=== PATIENT | female | born 1995 | race Caucasian/White ===

== ENCOUNTER 2022-12-21 11:07 | Inpatient (IN) ==
--- NOTE | 2022-12-21 11:26 | History & Physical Report ---
Date of Service December 21, 2022 Assessment & Plan (1) Rubella non-immune status, antepartum: (2) Supervision of normal first : Plan Will admit patient for further evaluation and management. ROM confirmed in office: Nitrazine (+) and ferning Patient comfortable. VSS. Pit as needed Epidural prn Patient in agreement. History of Present Illness Chief Complaint: LABOR CHECK Primary Care Provider: Tresa Zheng MD Farzana is a 27 y/o female currently at [facility]UP 40 2/7 WGA with an KATELYN 12/19/22 as determined by Ultrasound who is here for labor check. At around 1:30am, she woke up to go to the bathroom, and at this time noticed mucus vaginal secretion that she believes was her mucus plug. Since then, she was experiencing regular contractions every 10 minutes. At around 8:30am, she had watery discharge, and since then her contractions have increased in frequency to every 5 minutes. She was seen in the OB office today, where they examined her and they found pooling of fluid in the vaginal canal which was Nitrazine positive and had positive ferning, therefore confirming ROM. She was then told to go to L&D for further management. (+) movement (+) contractions (+) fluid loss (-) bloody show External FHT and external uterine monitors used * Category 1 tracing * Moderate FHT variability. Had regular appointments since her 1st trimester. OB Labs: Blood Type O Positive 05/27/22 Antibody Screen NEGATIVE 05/27/22 Hemoglobin 11.8 g/dl (12.0-16.0) L 09/29/22 Hematocrit 34.8 % (37.0-47.0) L 09/29/22 Mean Corpuscular Volume 91.2 fL (80.0-100.0) 05/27/22 Platelet Count 304 K/uL (130-400) 05/27/22 Rubella IgG Antibody Equivocal (Immune) L 05/27/22 Rapid Plasma Reagin Nonreactive (Nonreactive) 05/27/22 Hepatitis B Surface Antigen. NON-REACTIVE (NON-REACTIVE) 05/27/22 Hepatitis C Antibody (EIA) NON-REACTIVE (NON-REACTIVE) 05/27/22 HIV (1&2) Ag and Ab Confirmation NON-REACTIVE (NON-REACTIVE) 05/27/22 Glucose 1 Hour 50 gm Load 189 mg/dl (70-130) H 09/29/22 OB Optional Labs: Chlamydia trachomatis RNA Not Detected (NotDetected) 05/27/22 Neisseria gonorrhoeae RNA Not Detected (NotDetected) 05/27/22 Labs Reviewed: Declines carrier screen cfdna-low risk normal 2hr gtt Allergies Allergy/AdvReac Type Severity Reaction Status Date / Time nickel Allergy Intermediate contact Verified 12/21/22 11:44 dermatitis Home Medications Medication Instructions Recorded Confirmed Type prenat.vits,ezequiel,lap-wlxt-quwbw 1 tab PO DAILY 05/24/22 12/21/22 History Patient History Medical History Chicken pox Blood in stool Surgical History History of strabismus surgery History of wisdom tooth extraction S/P colonoscopy Family History Grandmother (Paternal) Family history of reaction to anesthesia difficulty waking Father Family hx colonic polyps Coronary heart disease Grandfather (Paternal) Coronary heart disease Uncle Coronary heart disease Denies family history of Ovarian cancer Breast cancer Colorectal cancer Social History (Updated 05/24/22 @ 13:27 by Joann Magana, YOUSIF) Smoking Status: Never smoker Second Hand Exposure: No; Do You Dip or Chew Tobacco: No; Hx Alcohol Use: Yes Alcohol type: wine and hard liquor Hx Substance Use: No Preferred Language: Hebrew Communication Ability: Effective Rn New Graduate Required: No Beliefs That Will Affect Care: None marital status: Single marital status details: Lilia Wilburn mother [phone] Current Living Situation: Alone Current Living Situation Comment: lives boyfriend, 2 cats. Boyfriend occasionally changes litter. current occupational status: employed current occupation: [employer] Feels Safe at Home: Yes Safety Concerns: Feels Safe At This Time Assistive Devices: Contacts and Glasses [employer] History Menstrual history * Regular * Flow: Normal Contraception use: No History of STDs: N Last Pap Smear: 1-2 years ago in [facility] and was negative, as per patient Review of Systems no fever, no chills and no sweats Denies changes in vision. Denies shortness of breath or respiratory difficulty. no chest pain and no palpitations no dysuria no headache(s) Physical Exam Physical Exam: General: Alert, oriented x3. Afebrile. No acute distress. Eyes: Pupils equal and reactive to light bilaterally. Extraocular movement intact bilaterally. Cardiac: Regular rate and rhythm, no murmurs/rubs/gallops. Respiratory: Clear to auscultation bilaterally a/p, no wheezes/rales/rhonchi. No increased work of breathing. Symmetrical chest rise. No respiratory distress. Abdomen: Gravid; FHR baseline 130-135 bpm; Position: Cephalic Pelvic: 2 90 / [address] Brown Lower Extremities: No lower extremity edema or swelling. No deep calf pain. Hoang's negative bilaterally Genitourinary: OB Exam Abdomen: + vertex, + estimated weight (8-9 pounds) and + regular contractions (Q5 minutes mild-moderate) OB Exam Monitor Tracing: + external FHT monitor used, + external uterine monitor used, + category I and + normal FHT variability Results & Data Vital Signs (Past 12 Hours) Vital Signs Pulse BP 12/21/22 11:17 105 H 139/93 Supervising Physician Co-Signing Physician Notes Resident Physician Supervision Note: I interviewed and examined the patient. Discussed with Dr. Sotomayor and agree with findings and plan as documented in the note. Any exceptions or clarifications are listed here: [None] Documented By: Chana Herzog MD, FACOG Resident Activity Tracking Resident Involvement: Resident Care Provided Care Provided: OB Delivery
[2022-12-21] MEDS ORDERED: OXYTOCIN 30 UNITS/500 ML BAG IV PRN ×4 (11:39→21:06)
[2022-12-21] MEDS ORDERED: LIDOCAINE 1% LOCAL 20 ML VIAL INFIL PRN (11:39)
[2022-12-21 12:26] LABS: Hematocrit (blood only) 37.4 % (37.0-47.0); Hemoglobin 12.9 g/dl (12.0-16.0); Mean Corpuscular Hemoglobin 30.9 pg (25.0-34.0); Mean Corpuscular Hgb Conc 34.5 g/dL (32.0-36.0); Mean Corpuscular Volume 89.5 fL (80.0-100.0); Mean Platelet Volume 10.7 fL (9.4-12.4); Platelet Count 190 K/uL (130-400); RDW Coefficient of Variation 13.3 % (11.5-14.5); RDW Standard Deviation 43.8 fL (36.4-46.3); Red Blood Count 4.18 M/uL (4.20-5.40); White Blood Count 14.81 K/ul (4.8-10.8)
[2022-12-21] MEDS: LACTATED RINGER'S 1,000 ML IV PRN ×4 (13:46→17:49)
[2022-12-21] MEDS ORDERED: ePHEDrine sulfate 50 MG/ML AMP ONE (14:14)
[2022-12-21] MEDS ORDERED: fentaNYL citrate PF 100 MCG/2 ML VIAL ONE (14:14)
[2022-12-21] MEDS ORDERED: BUPIVACAINE 0.25% PF 30 ML VIAL ONE (14:15)
[2022-12-21] MEDS ORDERED: LIDOCAINE 2%/EPINEPHRINE 1:200,000 20 ML PF ONE (14:15)
[2022-12-21] MEDS ORDERED: SODIUM CHLORIDE 0.9% PF INJ 10 ML VIAL ONE (14:15)
[2022-12-21] MEDS ORDERED: fentANYL 2 MCG/ML BUPIVacaine 0.125%-NSS 100ML BAG ONE (14:15)
--- NOTE | 2022-12-21 15:03 | Anesthesiology Consultation ---
Date of Service December 21, 2022 Assessment & Plan Chart Review Chart Review: Acceptable Risk for Surgery Consults Requested none History Height/Weight Height: 5 ft 5 in Weight: 88.904 kg Allergies Allergy/AdvReac Type Severity Reaction Status Date / Time nickel Allergy Intermediate contact Verified 12/21/22 11:44 dermatitis Medications Home Medications Medication Instructions Recorded Confirmed Last Taken prenat.vits,ezequiel,aad-aeta-hmbbu 1 tab PO DAILY 05/24/22 12/21/22 12/20/22 20:00 Active Medications Generic Name Dose Route Start Last Admin Trade Name Freq PRN Reason Stop Dose Admin Lactated Ringer's 1,000 mls @ 125 mls/hr 12/21/22 11:39 12/21/22 13:46 Lr IV 12/23/22 11:38 999 mls/hr .Q8H PRN Administration L&D Protocol Protocol Past Medical History Medical History Chicken pox Blood in stool Past Family History Family History Grandmother (Paternal) Family history of reaction to anesthesia difficulty waking Father Family hx colonic polyps Coronary heart disease Grandfather (Paternal) Coronary heart disease Uncle Coronary heart disease Denies family history of Ovarian cancer Breast cancer Colorectal cancer Past Surgical History Surgical History History of strabismus surgery History of wisdom tooth extraction S/P colonoscopy Social History Smoking Status: Never smoker Do You Dip or Chew Tobacco: No Hx Alcohol Use: Yes Alcohol type: wine and hard liquor alcohol intake frequency: a few times a month Alcohol Intake Frequency Comment: Patient states that she does not drink alcohol while Hx Substance Use: No substance use type: does not use Physical Exam Vital Signs Last Vital Signs Temp 36.8 C 12/21/22 13:35 Pulse 117 H 12/21/22 15:01 Resp 20 12/21/22 13:35 BP 134/60 12/21/22 15:01 Pulse Ox 98 12/21/22 14:56 Testing Laboratory Results 12/21/22 12:09
[2022-12-21] MEDS ORDERED: fentaNYL citrate PF 100 MCG/2 ML VIAL EPI PRN (15:04)
[2022-12-21] MEDS ORDERED: SODIUM CHLORIDE 0.9% PF INJ 10 ML VIAL EPI PRN (15:04)
[2022-12-21] MEDS ORDERED: LIDOCAINE 2% MPF LOCAL 5 ML VIAL EPI PRN (15:04)
[2022-12-21] MEDS ORDERED: BUPIVACAINE 0.25% PF 30 ML VIAL EPI PRN (15:04)
[2022-12-21] MEDS ORDERED: NALBUPHINE HCL 5 MG in SYRINGE 0 ML IV PRN (15:04)
[2022-12-21] MEDS ORDERED: SODIUM CHLORIDE 0.9% PF INJ 10 ML VIAL EPI STA (15:04)
[2022-12-21] MEDS ORDERED: ePHEDrine sulfate 50 MG/ML AMP IV PRN (15:04)
[2022-12-21] MEDS ORDERED: fentANYL 2 MCG/ML BUPIVacaine 0.125%-NSS 100ML BAG EPI PRN (15:04)
[2022-12-21] MEDS ORDERED: BUPIVACAINE 0.25% PF 30 ML VIAL EPI STA (15:04)
[2022-12-21] MEDS ORDERED: NALOXONE HCL 1 MG in SODIUM CHLORIDE 0.9% 1,000 ML IV PRN (15:04)
[2022-12-21] MEDS ORDERED: fentaNYL citrate PF 100 MCG/2 ML VIAL EPI STA (15:04)
[2022-12-21] MEDS ORDERED: ROPIVACAINE 0.5% PF 5 MG/ML 20 ML VIAL EPI PRN (15:04)
[2022-12-21] MEDS ORDERED: NALOXONE HCL 0.4 MG/1 ML VIAL/CARP IV PRN (15:04)
[2022-12-21] MEDS ORDERED: LIDOCAINE 2%/EPINEPHRINE 1:200,000 20 ML PF EPI STA (15:04)
[2022-12-21] MEDS ORDERED: diphenhydrAMINE 50 MG/ML VIAL IV PRN (15:04)
[2022-12-21] MEDS ORDERED: CALCIUM CARBONATE 500 MG CHEWABLE TAB PO PRN ×2 (15:43→15:44)
[2022-12-21] MEDS ORDERED: BENZOCAINE 20% SPRY 85 APPLN/85 GM CAN EXT PRN (21:06)
[2022-12-21] MEDS ORDERED: DIPHTHERIA/TETANUS/PERTUSSIS Vaccine (Tdap, Age 7+yrs) 0.5mL SYR/VL IM ONE (21:06)
[2022-12-21] MEDS ORDERED: oxyCODONE/ACETAMINOPHEN 5mg/325mg TAB PO PRN (21:06)
[2022-12-21] MEDS ORDERED: bisacodyL 10 MG SUPP PR PRN (21:06)
[2022-12-21] MEDS ORDERED: HYDROCORTISONE ACETATE 25 MG SUPP PR PRN (21:06)
[2022-12-21] MEDS ORDERED: ACETAMINOPHEN 325 MG TAB PO PRN (21:06)
[2022-12-21] MEDS: IBUPROFEN 600 MG TAB PO PRN (21:59)
--- NOTE | 2022-12-21 21:59 | Delivery Summary ---
Vaginal Delivery Summary Date of Service December 21, 2022 Vaginal Delivery Summary and 1st Degree LAC Patient is a 27-year-old 1 P0 female EDC 12/19/2022 who presented to labor and delivery with ruptured membranes. She required Pitocin augmentation to develop a consistent contraction pattern. She received effective epidural analgesia. She progressed to full dilation with the urge to push. She pushed effectively over intact perineum for delivery of a viable male . The anterior shoulder was delivered with mild traction after which the rest the followed easily. The infant was placed on the mother's abdomen for further attention and drying. After stimulation, he was vigorous crying and moving all 4 limbs. After 1 minute, the cord was clamped and cut. After cord blood was obtained, the placenta was expressed intact with a three-vessel cord. bleeding was controlled with dilute Pitocin and fundal massage. A first-degree perineal laceration was repaired with 3-0 chromic in the usual fashion. Estimated blood loss was 350 cc. 1% lidocaine was used to anesthetize the area of the perineal laceration prior to repair. Mother and were doing well after delivery. [facility] [place] Vaginal Delivery Charge Delivery Type Details: and 1st Degree LAC
[2022-12-22] MEDS: IBUPROFEN 600 MG TAB PO PRN ×5 (02:13→23:10)
--- NOTE | 2022-12-22 02:37 | Anesthesia Procedure Note ---
Date of Service December 22, 2022 Anesthesia Post Epidural Note Vital Signs Vital Signs: Temp Pulse Resp BP Pulse Ox O2 Del Method 36.8 C 124 H 20 137/87 96 Room Air 12/21/22 23:16 12/21/22 23:16 12/21/22 23:16 12/21/22 23:16 12/21/22 23:16 12/21/22 23:16 Pain Intensity Lower Abdomen: Pain Intensity: 6 Episiotomy/Laceration: Pain Intensity: 2 Notes Mental Status: alert / awake / arousable Nausea / Vomiting: adequately controlled Pain: adequately controlled Airway Patency, RR, SpO2: stable & adequate BP & HR: stable & adequate Hydration State: stable & adequate Neuraxial Anesthesia: was administered and sensory block is resolving Anesthetic Complications: no major complications apparent and Pt Satisfied with anesthetic care Epidural: Removed without complications and With tip intact
[2022-12-22 07:11] LABS: Hemoglobin 10.7 g/dl (12.0-16.0); Mean Corpuscular Hemoglobin 30.9 pg (25.0-34.0); Mean Corpuscular Hgb Conc 34.5 g/dL (32.0-36.0); Mean Corpuscular Volume 89.6 fL (80.0-100.0); Mean Platelet Volume 10.9 fL (9.4-12.4); Platelet Count 180 K/uL (130-400); RDW Coefficient of Variation 13.5 % (11.5-14.5); Red Blood Count 3.46 M/uL (4.20-5.40); White Blood Count 19.06 K/ul (4.8-10.8)
--- NOTE | 2022-12-22 07:39 | Obstetrical Progress Note ---
Date of Service <Jena Sotomayor MD - Last Filed: 12/22/22 07:39> December 22, 2022 Assessment & Plan <Jena Sotomayor MD - Last Filed: 12/22/22 07:39> (1) Encounter for assessment: Plan Patient with the above mentioned history and findings was evaluated at bedside and found awake, alert, oriented in all spheres, afebrile, and in no acute distress. Vital signs showed no fever and blood pressures remained stable Her blood type is O pos and today's hemoglobin is adequate at 10.7 g/dL. She is GBS negative and rubella equivocal. Overall, patient is doing well clinically. Will continue routine pp care. All questions were answered. <Chana Herzog MD, FACOG - Last Filed: 12/22/22 07:47> (1) Encounter for assessment: Subjective <Jena Sotomayor MD - Last Filed: 12/22/22 07:39> Farzana is a 27 y/o female who is now PPD # 1 following at 40 2/7. Reports feeling well overall this morning. Refers mild abdominal cramping & 2/10 pain well managed on analgesics. Voiding spontaneously. Tolerating meals overnight and able to ambulate some. Passing flatus but no bowel movements yet. Some persistent lochia with some improvement this morning. . Constitutional: no fever, no chills or no sweats Denies shortness of breath or difficulty breathing Cardiovascular: no chest pain or no palpitations Breast: no breast pain Genitourinary (female): no dysuria Neurologic: no headache(s) Denies changes in vision Physical Exam <Jena Sotomayor MD - Last Filed: 12/22/22 07:39> General: Alert. Oriented to person, time, and place. Afebrile. No acute distress. Eyes: pupils equal and reactive to light bilaterally, extraocular movements intact. Cardiac: Regular rate and rhythm, no murmurs/rubs/gallops. Respiratory: Clear to auscultation bilaterally a/p, no wheezes/rales/rhonchi. No increased work of breathing. Symmetrical chest rise. No respiratory distress. Abdomen: Soft, nontender, nondistended. Bowel sounds present. Uterus: Uterine fundus firm, mildly tender, and palpable below umbilicus. Lower Extremities: No lower extremity edema or swelling. No deep calf pain. Hoang's negative bilaterally. Psych: Euthymic affect. Mood and affect congruence. Regular speech rate and content. Results & Data <Jena Sotomayor MD - Last Filed: 12/22/22 07:39> Vital Signs (Past 12 Hours) Vital Signs Temp Pulse Pulse Resp BP BP Pulse Ox 12/22/22 03:25 36.7 C 98 H 20 134/87 96 12/21/22 23:16 36.8 C 124 H 20 137/87 96 12/21/22 22:57 18 12/21/22 22:57 126 H 12/21/22 22:57 130/80 12/21/22 22:42 122 H 12/21/22 22:42 130/81 12/21/22 22:27 18 12/21/22 22:27 115 H 12/21/22 22:27 127/79 12/21/22 22:22 118 H 12/21/22 22:22 138/83 12/21/22 22:12 129 H 12/21/22 22:12 151/105 H 12/21/22 21:57 18 12/21/22 21:57 121 H 12/21/22 21:57 147/89 H 12/21/22 21:42 18 12/21/22 21:42 130 H 12/21/22 21:42 134/75 12/21/22 21:34 121 H 12/21/22 21:34 138/82 12/21/22 21:27 18 12/21/22 21:27 133 H 12/21/22 21:27 133/99 12/21/22 21:13 18 12/21/22 21:13 127 H 12/21/22 21:13 139/92 12/21/22 20:57 18 12/21/22 20:57 116 H 12/21/22 20:57 132/78 12/21/22 20:54 118 H 12/21/22 20:54 140/83 12/21/22 20:39 95 12/21/22 20:39 132 H 12/21/22 20:38 116 H 12/21/22 20:38 140/77 12/21/22 20:34 94 12/21/22 20:34 124 H 12/21/22 20:31 94 12/21/22 20:31 160 H 12/21/22 20:29 95 12/21/22 20:29 129 H 12/21/22 20:26 91 12/21/22 20:26 144 H 12/21/22 20:24 88 L 12/21/22 20:24 148 H 12/21/22 20:23 130 H 12/21/22 20:23 133/76 12/21/22 20:21 93 12/21/22 20:21 155 H 12/21/22 20:19 88 L 12/21/22 20:19 161 H 12/21/22 20:16 86 L 12/21/22 20:16 141 H 12/21/22 20:14 80 L 12/21/22 20:14 150 H 12/21/22 20:10 92 12/21/22 20:10 157 H 12/21/22 20:09 98 12/21/22 20:09 131 H 12/21/22 20:09 139/81 12/21/22 20:05 90 12/21/22 20:05 159 H 12/21/22 20:03 96 12/21/22 20:03 148 H 12/21/22 19:58 85 L 12/21/22 19:58 134 H 12/21/22 19:53 97 12/21/22 19:53 120 H 12/21/22 19:51 97 12/21/22 19:51 129 H 12/21/22 19:46 96 12/21/22 19:46 137 H 12/21/22 19:43 94 12/21/22 19:43 116 H 12/21/22 19:41 97 12/21/22 19:41 126 H 12/21/22 19:39 148 H 12/21/22 19:39 143/77 H 12/21/22 19:37 81 L 12/21/22 19:37 135 H O2 Del Method 12/22/22 03:25 Room Air 12/21/22 23:16 Room Air 12/21/22 22:57 12/21/22 22:57 12/21/22 22:57 12/21/22 22:42 12/21/22 22:42 12/21/22 22:27 12/21/22 22:27 12/21/22 22:27 12/21/22 22:22 12/21/22 22:22 12/21/22 22:12 12/21/22 22:12 12/21/22 21:57 12/21/22 21:57 12/21/22 21:57 12/21/22 21:42 12/21/22 21:42 12/21/22 21:42 12/21/22 21:34 12/21/22 21:34 12/21/22 21:27 12/21/22 21:27 12/21/22 21:27 12/21/22 21:13 12/21/22 21:13 12/21/22 21:13 12/21/22 20:57 12/21/22 20:57 12/21/22 20:57 12/21/22 20:54 12/21/22 20:54 12/21/22 20:39 12/21/22 20:39 12/21/22 20:38 12/21/22 20:38 12/21/22 20:34 12/21/22 20:34 12/21/22 20:31 12/21/22 20:31 12/21/22 20:29 12/21/22 20:29 12/21/22 20:26 12/21/22 20:26 12/21/22 20:24 12/21/22 20:24 12/21/22 20:23 12/21/22 20:23 12/21/22 20:21 12/21/22 20:21 12/21/22 20:19 12/21/22 20:19 12/21/22 20:16 12/21/22 20:16 12/21/22 20:14 12/21/22 20:14 12/21/22 20:10 12/21/22 20:10 12/21/22 20:09 12/21/22 20:09 12/21/22 20:09 12/21/22 20:05 12/21/22 20:05 12/21/22 20:03 12/21/22 20:03 12/21/22 19:58 12/21/22 19:58 12/21/22 19:53 12/21/22 19:53 12/21/22 19:51 12/21/22 19:51 12/21/22 19:46 12/21/22 19:46 12/21/22 19:43 12/21/22 19:43 12/21/22 19:41 12/21/22 19:41 12/21/22 19:39 12/21/22 19:39 12/21/22 19:37 12/21/22 19:37 Supervising Physician <Chana Herzog MD, FACOG - Last Filed: 12/22/22 07:47> Co-Signing Physician Notes Resident Physician Supervision Note: I interviewed and examined the patient. Discussed with Dr. Sotomayor and agree with findings and plan as documented in the note. Any exceptions or clarifications are listed here: [None] Documented By: Chana Herzog MD, FACOG Resident Activity Tracking <Jena Sotomayor MD - Last Filed: 12/22/22 07:39> Resident Involvement: Resident Care Provided Care Provided: OB Delivery
[2022-12-22] MEDS ORDERED: PRENATAL VITAMIN 1 TAB PO SCH (08:00)
[2022-12-22] MEDS: DOCUSATE SODIUM 100 MG CAP PO SCH ×2 (08:17→19:38)
[2022-12-22] MEDS: PRENATAL VITAMIN 1 TAB PO SCH (08:17)
[2022-12-22] MEDS ORDERED: bisacodyL 5 MG TABEC PO SCH (20:00)
--- NOTE | 2022-12-23 06:57 | Obstetrical Progress Note ---
Date of Service <Jena Sotomayor MD - Last Filed: 12/23/22 06:58> December 23, 2022 Assessment & Plan <Jena Sotomayor MD - Last Filed: 12/23/22 06:58> (1) Encounter for assessment: Plan Patient with the above mentioned history and findings was evaluated at bedside and found awake, alert, oriented in all spheres, afebrile, and in no acute distress. Vital signs showed no fever and blood pressures remained stable Her blood type is O pos and most recent hemoglobin is adequate at 10.7 g/dL. She is GBS negative and rubella equivocal. Overall, patient is doing well clinically and meeting all the desired milestones. Since she is clinically and hemodynamically stable, will discharge today. Patient counseled to schedule a follow up appointment with the OB office in 6 weeks for her routine pp evaluation. Discharge instructions discussed. All questions were answered. <Susan Michaels MD - Last Filed: 12/23/22 07:34> (1) Encounter for assessment: Subjective <Jena Sotomayor MD - Last Filed: 12/23/22 06:58> Farzana is a 27 y/o female who is now PPD # 2 following at 40 2/7. Reports feeling well overall this morning. Refers mild abdominal cramping & 2/10 pain well managed on analgesics. Voiding spontaneously. Tolerating meals overnight and able to ambulate some. Passing flatus but no bowel movements yet. Some persistent lochia with some improvement this morning. . Constitutional: no fever, no chills or no sweats Denies shortness of breath or difficulty breathing Cardiovascular: no chest pain or no palpitations Breast: no breast pain Genitourinary (female): no dysuria Neurologic: no headache(s) Denies changes in vision Physical Exam <Jena Sotomayor MD - Last Filed: 12/23/22 06:58> General: Alert. Oriented to person, time, and place. Afebrile. No acute distress. Eyes: pupils equal and reactive to light bilaterally, extraocular movements intact. Cardiac: Regular rate and rhythm, no murmurs/rubs/gallops. Respiratory: Clear to auscultation bilaterally a/p, no wheezes/rales/rhonchi. No increased work of breathing. Symmetrical chest rise. No respiratory distress. Abdomen: Soft, nontender, nondistended. Bowel sounds present. Uterus: Uterine fundus firm, non-tender, and palpable below umbilicus. Lower Extremities: Bilateral swelling. No deep calf pain. Hoang's negative bilaterally. Psych: Euthymic affect. Mood and affect congruence. Regular speech rate and content. Results & Data <Jena Sotomayor MD - Last Filed: 12/23/22 06:58> Vital Signs (Past 12 Hours) Vital Signs Temp Pulse Resp BP Pulse Ox O2 Del Method 12/22/22 23:15 36.8 C 99 H 16 130/78 12/22/22 19:50 36.9 C 109 H 18 138/88 97 Room Air Supervising Physician <Susan Michaels MD - Last Filed: 12/23/22 07:34> Co-Signing Physician Notes Resident Physician Supervision Note: I interviewed and examined the patient. Discussed with Dr. Sotomayor and agree with findings and plan as documented in the note. Any exceptions or clarifications are listed here: PP2 s/p , doing well. Stable for d/c home Documented By: Susan Michaels MD Resident Activity Tracking <Jena Sotomayor MD - Last Filed: 12/23/22 06:58> Resident Involvement: Resident Care Provided Care Provided: OB Delivery
[2022-12-23 07:00] LABS: Hematocrit (blood only) 29.6 % (37.0-47.0); Hemoglobin 10.2 g/dl (12.0-16.0)
[2022-12-23] MEDS ORDERED: MEASLES, MUMPS & RUBELLA VIRUS VACCINE (MMR) VIAL SQ ONE (07:23)
[2022-12-23] MEDS: DOCUSATE SODIUM 100 MG CAP PO SCH (07:56)
[2022-12-23] MEDS: PRENATAL VITAMIN 1 TAB PO SCH (07:56)
[2022-12-23] MEDS ORDERED: MEASLES, MUMPS & RUBELLA VIRUS VACCINE (MMR) VIAL ONE (10:02)
[2022-12-23] MEDS: IBUPROFEN 600 MG TAB PO PRN (12:20)
== END 2022-12-23 13:47 | disposition home or self-care (01) | DRG 807 ==
LOC: OPB 11:07 → 4S1 11:08 → 4E2 23:24

== ENCOUNTER 2024-10-10 07:44 | Inpatient (IN) ==
[2024-10-10] MEDS ORDERED: CALCIUM CARBONATE 500 MG CHEWABLE TAB PO PRN (07:49)
[2024-10-10] MEDS ORDERED: LIDOCAINE 1% LOCAL 20 ML VIAL INFIL PRN (07:49)
[2024-10-10] MEDS ORDERED: OXYTOCIN 30 UNITS/NSS 30 UNITS/500 ML BAG IV PRN ×2 (07:49→20:45)
[2024-10-10 08:25] LABS: Hematocrit (blood only) 34.4 % (37.0-47.0); Hemoglobin 11.4 g/dl (12.0-16.0); Mean Corpuscular Hemoglobin 29.8 pg (25.0-34.0); Mean Corpuscular Volume 90.1 fL (80.0-100.0); Platelet Count 188 K/uL (130-400); RDW Standard Deviation 47.2 fL (36.4-46.3); Red Blood Count 3.82 M/uL (4.20-5.40); White Blood Count 13.11 K/ul (4.8-10.8)
--- NOTE | 2024-10-10 08:44 | History & Physical Report ---
Date of Service October 10, 2024 Assessment & Plan (1) Encounter for induction of labor: (2) Gestational diabetes: (3) 40 weeks gestation of : Plan Pitocin Arom when indicated Monitor tracing, category 1 Admission and Anticipated Discharge Date Admission Date: October 10, 2024 History of Present Illness Chief Complaint: IOL Primary Care Provider: Tresa Zheng MD 28 yo at 40w0d admitted for IOL for elective. Denies contractions, fluid loss, bloody show. Positive movement. Complications during include GDM (diet-controlled), Hep B non-immune, and arrhythmias. She has been attending OB appointments regularly. She takes omeprazole, Pepcid, Tylenol and prenatals. Denies COHEN, CP, SOB, N/V/D, LE pain. GBS neg, RH+, RI Allergies Allergy/AdvReac Type Severity Reaction Status Date / Time nickel Allergy Intermediate contact Verified 10/10/24 08:20 dermatitis Home Medications Medication Instructions Recorded Confirmed Type prenat.vits,ezequiel,for-[id number] 1 tab PO DAILY 05/24/22 10/10/24 History breast pump #1 ea 08/01/24 10/09/24 Rx acetone (urine) test (Ketone Urine #50 ea 08/09/24 10/09/24 Rx Test strips) blood sugar diagnostic (OneTouch #150 ea 08/09/24 10/09/24 Rx Verio test strips) blood-glucose meter (OneTouch #1 ea 08/09/24 10/09/24 Rx Verio Flex Meter) lancets 33 gauge (OneTouch Delica #150 ea 08/09/24 10/09/24 Rx Plus Lancet) omeprazole 20 mg capsule,delayed 20 mg PO DAILY #30 caps 08/15/24 10/10/24 Rx release famotidine-Ca carb-mag hydrox 10 1 tab PO BID PRN Heartburn 10/10/24 10/10/24 History mg-800 mg-165 mg chewable tablet (Pepcid Complete) Patient History Medical History (Updated 10/10/24 @ 09:34 by Zoya Delgadillo MD, FACOG) Gestational diabetes diet control Encounter for assessment Supervision of normal first Chicken pox Blood in stool resolved Surgical History S/P colonoscopy found to be WNL History of wisdom tooth extraction History of strabismus surgery bilt eyes Family History Grandmother (Paternal) Family history of reaction to anesthesia difficulty waking Father Family hx colonic polyps Coronary heart disease Grandfather (Paternal) Coronary heart disease Uncle Coronary heart disease Denies family history of Ovarian cancer Breast cancer Colorectal cancer Social History Smoking Status: Never smoker Second Hand Exposure: No; Do You Dip or Chew Tobacco: No; Hx Alcohol Use: No Hx Substance Use: No Preferred Language: Burmese Communication Ability: Effective Cold Type Artist Required: No Beliefs That Will Affect Care: None marital status: marital status details: Sudheer (32) [phone] Current Living Situation: Spouse and Significant Other Current Living Situation Comment: Patient lives with and 1 son. current occupational status: employed current occupation: [employer] Feels Safe at Home: Yes Safety Concerns: Feels Safe At This Time Assistive Devices: Contacts and Glasses OB History : 2 Full term: 1 Premature: 0 Total Number of Induced Abortions: 0 Total Number of Spontaneous Abortions: 0 Ectopics: 0 Multiple births: 0 Number of Living Children: 1 Del. Date GA wks Lbr Lgth wt Sex Type del Anes Place Del Prov ? Comment 12/21/22 40 7lb 12.2oz M Ep idural [facility] [employer] History Menstrual reliability: definite Flow: heavy Menstrual regularity: regular Monthly: Yes Age at menarche: 12 On control pills at conception: No Date of positive home test: 02/14/24 Menstrual history comments: 30-35 day cycles Details: last pap greater than 3 years ago Review of Systems All systems reviewed & are unremarkable except as noted in HPI & below Physical Exam Constitutional: WD/WN, vitals as above Respiratory: normal respiratory effort, lungs clear to auscultation Cardiovascular: RRR, no murmur, no edema Gastrointestinal (Abdomen): normal bowel sounds, soft, nontender, no hepatosplenomegaly +gravid Skin: no rashes, warm and dry Genitourinary: Manual OB Exam: + cervical dilation 1 cm, + cervical effacement 70% and + station -2 EFW: 7-[address] Delgadillo Results & Data Vital Signs (Past 12 Hours) Vital Signs Pulse BP 10/10/24 07:59 107 H 114/85 Laboratory Results OB Labs: Blood Type O Positive 03/15/24 Antibody Screen NEGATIVE 03/15/24 Hgb 11.7 g/dl (12.0-16.0) L 07/18/24 Hct 35.1 % (37.0-47.0) L 07/18/24 MCV 90.5 fL (80.0-100.0) 03/15/24 Plt Count 327 K/uL (130-400) 03/15/24 Rubella IgG Antibody Immune (Immune) 03/15/24 RPR Nonreactive (Nonreactive) 05/27/22 Treponema pallidum Ab Negative (Negative) 07/18/24 Hep Bs Antigen Negative (Negative) 03/15/24 Hep Bs Antigen NON-REACTIVE (NON-REACTIVE) 05/27/22 Hepatitis C Antibody Negative (Negative) 03/15/24 Hepatitis C Ab (EIA) NON-REACTIVE (NON-REACTIVE) 05/27/22 HIV 1&2 Ab/P24 Ag 4thGn Negative (Negative) 03/15/24 HIV (1&2) Ag & Ab Conf NON-REACTIVE (NON-REACTIVE) 05/27/22 Glucose 1 Hr 50 gm 174 mg/dl (70-130) H 07/18/24 OB Optional Labs: Chlamydia trachomatis RNA Not Detected (NotDetected) 03/15/24 Neisseria gonorrhoeae RNA Not Detected (NotDetected) 03/15/24 Thyroid Stimulating Hormone (TSH) 0.713 uIu/ml (0.300-4.500) 08/15/24 Monitoring External Monitor HR: 150 Variability: moderate Accelerations: present Decelerations: absent Contractions: absent Category 1 tracing Supervising Physician Co-Signing Physician Notes Resident Physician Supervision Note: I was present with Dr. Jeffries during the history and exam. I discussed the case with the resident and agree with the findings and plan as documented in the note. Any exceptions or clarifications are listed here: 28yo at term desires elective induction. gdm diet controlled. last growth u/s efw 80%. has had arrhythmia heard on and off last couple wks of this . abd soft gravid nt. sve 1+/70/-2 arom clear. fhts categ 1. will add pitocin for induction. check bsgs per order. allow epidural when pt desires. Documented By: Zoya Delgadillo MD, FACOG Resident Activity Tracking Resident Involvement: Resident Care Provided Care Provided: OB Delivery
[2024-10-10] MEDS: LACTATED RINGER'S 1,000 ML IV PRN (09:05)
[2024-10-10] MEDS: OXYTOCIN 30 UNITS/NSS 30 UNITS/500 ML BAG IV PRN (09:05)
[2024-10-10] MEDS: Patient's HEIGHT &/or WEIGHT Needed STA (09:07)
[2024-10-10] MEDS ORDERED: fentANYL 2 MCG/ML BUPIVacaine 0.125%-NSS 100ML BAG EPI PRN (13:49)
[2024-10-10] MEDS ORDERED: SODIUM CHLORIDE 0.9% PF INJ 10 ML VIAL EPI PRN (13:49)
[2024-10-10] MEDS ORDERED: diphenhydrAMINE 50 MG/ML VIAL IV PRN (13:49)
[2024-10-10] MEDS ORDERED: LIDOCAINE 2% MPF LOCAL 5 ML VIAL EPI PRN (13:49)
[2024-10-10] MEDS ORDERED: NALOXONE HCL 0.4 MG/1 ML VIAL/CARP IV PRN (13:49)
[2024-10-10] MEDS ORDERED: BUPIVACAINE 0.25% PF 30 ML VIAL EPI PRN (13:49)
[2024-10-10] MEDS ORDERED: ROPIVACAINE 0.5% PF 5 MG/ML 20 ML VIAL EPI PRN (13:49)
[2024-10-10] MEDS ORDERED: NALOXONE HCL 1 MG in SODIUM CHLORIDE 0.9% 1,000 ML IV PRN (13:49)
[2024-10-10] MEDS ORDERED: NALBUPHINE HCL INJ 10 MG/ML AMP IV PRN (13:49)
--- NOTE | 2024-10-10 13:51 | Anesthesiology Consultation ---
Date of Service October 10, 2024 Assessment & Plan (1) Encounter for pre-operative examination: Chart Review Chart Review: Patient NOT seen in Pre Admission Testing and Acceptable Risk for Labor Epidural Consults Requested none History Height/Weight Height: 5 ft 5 in Weight: 87.815 kg Allergies Allergy/AdvReac Type Severity Reaction Status Date / Time nickel Allergy Intermediate contact Verified 10/10/24 08:20 dermatitis Medications Home Medications Medication Instructions Recorded Confirmed Last Taken prenat.vits,ezequiel,whb-[id number] 1 tab PO DAILY 05/24/22 10/10/24 10/10/24 07:00 breast pump #1 ea 08/01/24 10/09/24 Unknown acetone (urine) test (Ketone Urine #50 ea 08/09/24 10/09/24 Unknown Test strips) blood sugar diagnostic (OneTouch #150 ea 08/09/24 10/09/24 Unknown Verio test strips) blood-glucose meter (OneTouch #1 ea 08/09/24 10/09/24 Unknown Verio Flex Meter) lancets 33 gauge (OneTouch Delica #150 ea 08/09/24 10/09/24 Unknown Plus Lancet) omeprazole 20 mg capsule,delayed 20 mg PO DAILY #30 caps 08/15/24 10/10/24 10/10/24 06:00 release famotidine-Ca carb-mag hydrox 10 1 tab PO BID PRN Heartburn 10/10/24 10/10/24 10/09/24 18:00 mg-800 mg-165 mg chewable tablet (Pepcid Complete) Active Medications Generic Name Dose Route Start Last Admin Trade Name Freq PRN Reason Stop Dose Admin Oxytocin 30 units in 500 mls @ 17 mls/hr 10/10/24 07:49 10/10/24 13:10 Pitocin 30 Units/Nss IV 10/12/24 07:48 1.02 units/hr .Q24H PRN 17 mls/hr Labor Induction/Augmentation Titration Protocol 1.02 UNITS/HR Lactated Ringer's 1,000 mls @ 125 mls/hr 10/10/24 07:49 10/10/24 09:05 Lr IV 10/12/24 07:48 125 mls/hr .Q8H PRN Administration L&D Protocol Protocol Past Medical History Medical History (Updated 08/27/25 @ 09:34 by Zoya Delgadillo MD, FACOG) Gestational diabetes diet control Encounter for assessment Supervision of normal first Chicken pox Blood in stool resolved Exercise / Class Metabolic Activity II 4-5 Yardwork/Stairs/Walk up hill Past Family History Family History Grandmother (Paternal) Family history of reaction to anesthesia difficulty waking Father Family hx colonic polyps Coronary heart disease Grandfather (Paternal) Coronary heart disease Uncle Coronary heart disease Denies family history of Ovarian cancer Breast cancer Colorectal cancer Past Surgical History Surgical History S/P colonoscopy found to be WNL History of wisdom tooth extraction History of strabismus surgery bilt eyes Past Anesthesia History No Hx of Anesthesia Complications and No Family Hx of Anesthesia Complications Social History Smoking Status: Never smoker Do You Dip or Chew Tobacco: No Hx Alcohol Use: No alcohol intake frequency: a few times a month Hx Substance Use: No substance use type: does not use Physical Exam Vital Signs Last Vital Signs Temp 36.8 C 10/10/24 13:11 Pulse 100 H 10/10/24 13:39 Resp 20 10/10/24 12:39 BP 135/84 10/10/24 13:39 Testing Laboratory Results 10/10/24 08:07 10/10/24 10/10/24 11:22 08:54 POC Glucose 84 87
[2024-10-10] MEDS: FAMOTIDINE 20 MG TAB PO SCH (14:29)
[2024-10-10] MEDS: LIDOCAINE 2%/EPINEPHRINE 1:200,000 20 ML PF ONE (14:37)
[2024-10-10] MEDS: BUPIVACAINE 0.25% PF 30 ML VIAL ONE (14:37)
[2024-10-10] MEDS: fentANYL 2 MCG/ML BUPIVacaine 0.125%-NSS 100ML BAG ONE (14:45)
[2024-10-10] MEDS: BUPIVACAINE 0.25% PF 30 ML VIAL EPI STA (14:48)
[2024-10-10] MEDS: SODIUM CHLORIDE 0.9% PF INJ 10 ML VIAL ONE (14:48)
[2024-10-10] MEDS: LIDOCAINE 2%/EPINEPHRINE 1:200,000 20 ML PF EPI STA (14:50)
[2024-10-10] MEDS: SODIUM CHLORIDE 0.9% PF INJ 10 ML VIAL EPI STA (14:51)
--- NOTE | 2024-10-10 15:51 | Labor Progress Brief Note ---
Date of Service October 10, 2024 Subjective now comfortable Assessment & Plan (1) 40 weeks gestation of : (2) Encounter for induction of labor: (3) arrhythmia affecting , antepartum: (4) Gestational diabetes: Plan good cx change. fhts categ 1. bsgs per order. c/w pit. Admission and Anticipated Discharge Date Admission Date: October 10, 2024 Physical Exam Constitutional: WD/WN, vitals as above Genitourinary: Manual OB Exam: + cervical dilation 4 cm, + cervical effacement 90% and + station -1 OB Exam Monitor Tracing: + external FHT monitor used, + external uterine monitor used (q2-4), + category I and + normal FHT variability Results & Data Vital Signs (Past 12 Hours) Vital Signs Temp Pulse Resp BP Pulse Ox 10/10/24 15:46 97 10/10/24 15:46 92 H 10/10/24 15:43 92 H 10/10/24 15:43 118/72 10/10/24 15:41 99 10/10/24 15:41 94 H 10/10/24 15:37 100 H 10/10/24 15:37 106/68 10/10/24 15:36 98 10/10/24 15:36 98 H 10/10/24 15:31 98 10/10/24 15:31 98 H 10/10/24 15:26 99 10/10/24 15:26 95 H 10/10/24 15:23 93 H 10/10/24 15:23 121/66 10/10/24 15:21 99 10/10/24 15:21 92 H 10/10/24 15:16 97 10/10/24 15:16 99 H 10/10/24 15:11 99 10/10/24 15:11 90 10/10/24 15:07 100 H 10/10/24 15:07 109/60 10/10/24 15:06 96 10/10/24 15:06 102 H 10/10/24 15:01 97 10/10/24 15:01 100 H 10/10/24 14:56 99 10/10/24 14:56 100 H 10/10/24 14:54 99 H 10/10/24 14:54 123/67 10/10/24 14:51 97 10/10/24 14:51 106 H 10/10/24 14:47 18 10/10/24 14:47 98.1 F 18 10/10/24 14:47 112 H 10/10/24 14:47 117/67 10/10/24 14:46 98 10/10/24 14:46 100 H 10/10/24 14:43 101 H 10/10/24 14:43 119/58 L 10/10/24 14:41 98 10/10/24 14:41 105 H 10/10/24 14:38 100 H 10/10/24 14:38 146/77 H 10/10/24 14:36 98 10/10/24 14:36 105 H 10/10/24 14:31 98 10/10/24 14:31 110 H 10/10/24 14:30 86 L 10/10/24 14:30 170 H 10/10/24 14:25 100 H 10/10/24 14:25 156/89 H 10/10/24 13:39 100 H 10/10/24 13:39 135/84 10/10/24 13:11 98.2 F 10/10/24 12:39 20 10/10/24 12:39 98.1 F 20 10/10/24 12:39 104 H 10/10/24 12:39 135/87 10/10/24 11:45 98 H 10/10/24 11:45 126/85 10/10/24 11:25 16 10/10/24 11:25 98.1 F 16 10/10/24 11:08 16 10/10/24 11:08 16 10/10/24 11:08 98 H 10/10/24 11:08 136/83 10/10/24 10:06 18 10/10/24 10:06 98.1 F 18 10/10/24 10:06 93 H 10/10/24 10:06 137/77 10/10/24 09:14 100 H 10/10/24 09:14 118/69 10/10/24 09:00 16 10/10/24 09:00 98.2 F 16 10/10/24 08:25 98.2 F 107 H 18 114/85 10/10/24 07:59 107 H 114/85 Coding Level of Care Code None Diagnoses 40 weeks gestation of Z3A.40 Encounter for induction of labor Z34.90 arrhythmia affecting , antepartum O36.8390 Gestational diabetes O24.419
--- NOTE | 2024-10-10 17:50 | Labor Progress Brief Note ---
Date of Service October 10, 2024 Subjective pt with some lower pelvis pain. bladder being drained right now. Assessment & Plan (1) 40 weeks gestation of : (2) Encounter for induction of labor: (3) arrhythmia affecting , antepartum: (4) Gestational diabetes: Plan good cx change. fhts categ 1. c/w pit. Admission and Anticipated Discharge Date Admission Date: October 10, 2024 Physical Exam Constitutional: WD/WN, vitals as above Genitourinary: Manual OB Exam: + cervical dilation 7 cm, + cervical effacement (75%) and + station -1 OB Exam Monitor Tracing: + external FHT monitor used, + external uterine monitor used (q2 pit at 21. ), + category I and + normal FHT variability Results & Data Vital Signs (Past 12 Hours) Vital Signs Temp Pulse Resp BP Pulse Ox 10/10/24 17:46 98 10/10/24 17:46 100 H 10/10/24 17:41 99 10/10/24 17:41 106 H 10/10/24 17:39 109 H 10/10/24 17:39 136/83 10/10/24 17:36 99 10/10/24 17:36 108 H 10/10/24 17:31 99 10/10/24 17:31 107 H 10/10/24 17:26 99 10/10/24 17:26 93 H 10/10/24 17:23 93 H 10/10/24 17:23 146/86 H 10/10/24 17:21 97 10/10/24 17:21 101 H 10/10/24 17:16 96 10/10/24 17:16 94 H 10/10/24 17:11 97 10/10/24 17:11 98 H 10/10/24 17:08 96 H 10/10/24 17:08 123/74 10/10/24 17:06 96 10/10/24 17:06 92 H 10/10/24 17:01 96 10/10/24 17:01 94 H 10/10/24 16:56 97 10/10/24 16:56 95 H 10/10/24 16:54 90 10/10/24 16:54 119/72 10/10/24 16:51 97 10/10/24 16:51 90 10/10/24 16:46 97 10/10/24 16:46 100 H 10/10/24 16:41 96 10/10/24 16:41 88 10/10/24 16:38 83 10/10/24 16:38 120/71 10/10/24 16:36 97 10/10/24 16:36 91 H 10/10/24 16:31 98 10/10/24 16:31 89 10/10/24 16:26 97 10/10/24 16:26 89 10/10/24 16:22 18 10/10/24 16:22 98.1 F 18 10/10/24 16:22 88 10/10/24 16:22 128/77 10/10/24 16:21 98 10/10/24 16:21 86 10/10/24 16:16 98 10/10/24 16:16 91 H 10/10/24 16:11 99 10/10/24 16:11 93 H 10/10/24 16:08 84 10/10/24 16:08 121/73 10/10/24 16:07 85 10/10/24 16:07 123/70 10/10/24 16:06 97 10/10/24 16:06 90 10/10/24 16:01 98 10/10/24 16:01 89 10/10/24 15:56 99 10/10/24 15:56 92 H 10/10/24 15:53 87 10/10/24 15:53 121/76 10/10/24 15:51 97 10/10/24 15:51 93 H 10/10/24 15:46 97 10/10/24 15:46 92 H 10/10/24 15:43 92 H 10/10/24 15:43 118/72 10/10/24 15:41 99 10/10/24 15:41 94 H 10/10/24 15:37 100 H 10/10/24 15:37 106/68 10/10/24 15:36 98 10/10/24 15:36 98 H 10/10/24 15:31 98 10/10/24 15:31 98 H 10/10/24 15:26 99 10/10/24 15:26 95 H 10/10/24 15:23 93 H 10/10/24 15:23 121/66 10/10/24 15:21 99 10/10/24 15:21 92 H 10/10/24 15:16 97 10/10/24 15:16 99 H 10/10/24 15:11 99 10/10/24 15:11 90 10/10/24 15:07 100 H 10/10/24 15:07 109/60 10/10/24 15:06 96 10/10/24 15:06 102 H 10/10/24 15:01 97 10/10/24 15:01 100 H 10/10/24 14:56 99 10/10/24 14:56 100 H 10/10/24 14:54 99 H 10/10/24 14:54 123/67 10/10/24 14:51 97 10/10/24 14:51 106 H 10/10/24 14:47 18 10/10/24 14:47 98.1 F 18 10/10/24 14:47 112 H 10/10/24 14:47 117/67 10/10/24 14:46 98 10/10/24 14:46 100 H 10/10/24 14:43 101 H 10/10/24 14:43 119/58 L 10/10/24 14:41 98 10/10/24 14:41 105 H 10/10/24 14:38 100 H 10/10/24 14:38 146/77 H 10/10/24 14:36 98 10/10/24 14:36 105 H 10/10/24 14:31 98 10/10/24 14:31 110 H 10/10/24 14:30 86 L 10/10/24 14:30 170 H 10/10/24 14:25 100 H 10/10/24 14:25 156/89 H 10/10/24 13:39 100 H 10/10/24 13:39 135/84 10/10/24 13:11 98.2 F 10/10/24 12:39 20 10/10/24 12:39 98.1 F 20 10/10/24 12:39 104 H 10/10/24 12:39 135/87 10/10/24 11:45 98 H 10/10/24 11:45 126/85 10/10/24 11:25 16 10/10/24 11:25 98.1 F 16 10/10/24 11:08 16 10/10/24 11:08 16 10/10/24 11:08 98 H 10/10/24 11:08 136/83 10/10/24 10:06 18 10/10/24 10:06 98.1 F 18 10/10/24 10:06 93 H 10/10/24 10:06 137/77 10/10/24 09:14 100 H 10/10/24 09:14 118/69 10/10/24 09:00 16 10/10/24 09:00 98.2 F 16 10/10/24 08:25 98.2 F 107 H 18 114/85 10/10/24 07:59 107 H 114/85 Coding Level of Care Code None Diagnoses 40 weeks gestation of Z3A.40 Encounter for induction of labor Z34.90 arrhythmia affecting , antepartum O36.8390 Gestational diabetes O24.419
[2024-10-10] MEDS ORDERED: NURSING L&D Epidural Breakthrough Pain Update ONE (18:21)
[2024-10-10] MEDS ORDERED: ROPIVACAINE 0.5% 5 MG/ML 30 ML VIAL ONE (18:36)
[2024-10-10] MEDS ORDERED: LIDOCAINE 2%/EPINEPHRINE 1:200,000 20 ML PF ONE (18:36)
[2024-10-10] MEDS: ONDANSETRON INJ 2 MG/ML 2 ML VIAL IV PRN (19:35)
[2024-10-10] MEDS: METHYLERGONOVINE MALEATE 0.2 MG/ML AMP IM ONE (20:01)
--- NOTE | 2024-10-10 20:01 | Delivery Summary ---
Vaginal Delivery Summary Date of Service October 10, 2024 Vaginal Delivery Summary The patient dilated to complete and pushed to deliver a viable male Apgars 8 and 9 via over intact perineum. Mouth and nose bulb suctioned at perineum. Shoulders and body delivered with ease with gentle downward traction and flexion at hips and maternal efforts, no obvious shoulder dystocia. Infant was vigorous and crying at . Cord clamped at 30 seconds of life and to maternal abdomen where the cord was then doubly clamped and cut. Placenta delivered spontaneously and intact, three-vessel cord. Hemostasis not achieved with dilute pitocin and uterine massage and drainage of the bladder for minimal urine under sterile conditions. Therefore rectal cytotec 1000mcg and im methergine given. BP was noted from pre-delivery as normotensive. Hemostasis improving. Cervix and sulci intact. QBL 283 cc. Mother and baby stable in recovery. [facility] Vaginal Delivery Charge Delivery Type Details:
[2024-10-10] MEDS ORDERED: DIPHTHER/TETAN/PERTUS Vaccine (Tdap, Adol/Adult) 0.5mL IM ONE (20:45)
[2024-10-10] MEDS ORDERED: HYDROCORTISONE ACETATE 25 MG SUPP PR PRN (20:45)
[2024-10-10] MEDS: IBUPROFEN 600 MG TAB PO PRN (21:24)
[2024-10-10] MEDS: BENZOCAINE 20% SPRY 85 APPLN/85 GM CAN EXT PRN (21:25)
[2024-10-10] MEDS: DOCUSATE SODIUM 100 MG CAP PO SCH (21:25)
--- NOTE | 2024-10-10 21:36 | Anesthesia Procedure Note ---
Date of Service October 10, 2024 Anesthesia Post Epidural Note Vital Signs Vital Signs: Temp Pulse Resp BP Pulse Ox 36.7 C 117 H 16 129/65 95 10/10/24 19:05 10/10/24 21:31 10/10/24 19:05 10/10/24 21:20 10/10/24 21:31 Notes Mental Status: alert / awake / arousable and participated in evaluation Patient Amnestic to Procedure: No Nausea / Vomiting: adequately controlled Pain: adequately controlled Airway Patency, RR, SpO2: stable & adequate BP & HR: stable & adequate Hydration State: stable & adequate Neuraxial Anesthesia: was administered and sensory block is resolving Anesthetic Complications: no major complications apparent and Pt Satisfied with anesthetic care Epidural: Removed without complications and With tip intact
[2024-10-11] MEDS ORDERED: METHYLERGONOVINE MALEATE 0.2 MG/ML AMP ONE (00:02)
[2024-10-11] MEDS: ACETAMINOPHEN 325 MG TAB PO PRN (03:35)
--- NOTE | 2024-10-11 06:03 | Obstetrical Progress Note ---
Date of Service <Sandra Jeffries DO - Last Filed: 10/11/24 07:14> October 11, 2024 Assessment & Plan <Sandra Jeffries DO - Last Filed: 10/11/24 07:14> (1) care following vaginal delivery: Plan 28 yo post- day 1 s/p . Feels well today. Vital signs stable Continue post- care Encourage ambulation and Pain controlled with ibuprofen Hgb stable <Zoya Delgadillo MD, FACOG - Last Filed: 10/11/24 07:20> (1) care following vaginal delivery: Subjective <Sandra Jeffries DO - Last Filed: 10/11/24 07:14> 28 yo post- day 1 s/p . Ambulation: ambulating normally Voiding: no voiding problems Passing Gas:: Yes Passing Stool:: No Diet Tolerance:: regular diet Lochia:: Small Feeding Type:: breast feeding Current Pain Level: 4/10 Resting comfortably this AM in NAD. Denies COHEN, CP, SOB, N/V/D, LE pain/swelling. Review of Systems All systems reviewed & are unremarkable except as noted in HPI & below Physical Exam <Sandra Jeffries DO - Last Filed: 10/11/24 07:14> General: patient resting comfortably, NAD, non-toxic in appearance, AA&O x 4, answers questions appropriately. Skin: warm, dry, intact HEENT: NC/AT, anicteric sclera, conjunctiva without injection, moist mucus membranes. Heart: +S1/S2, regular, no m/r/g Lungs: equal air entry bilaterally, no rales/rhonchi/wheezes Abd: +BS, soft, NT/ND, uterine fundus 3 FBs below umbilicus Ext: warm, no clubbing/cyanosis or edema, Hoang's neg. Neuro: nonfocal, patient AA&O x 4, speech intact, no facial droop, moving all extremities on command. Results & Data <Sandra Jeffries DO - Last Filed: 10/11/24 07:14> Vital Signs (Past 12 Hours) Vital Signs Temp Pulse Pulse Resp BP BP Pulse Ox 10/11/24 03:30 36.7 C 88 16 133/84 96 10/10/24 23:17 36.8 C 114 H 18 143/87 H 96 10/10/24 22:06 96 10/10/24 22:06 119 H 10/10/24 22:05 116 H 10/10/24 22:05 105/62 10/10/24 22:01 95 10/10/24 22:01 122 H 10/10/24 21:59 93 10/10/24 21:59 118 H 10/10/24 21:56 95 10/10/24 21:56 119 H 10/10/24 21:51 95 10/10/24 21:51 120 H 10/10/24 21:50 116 H 10/10/24 21:50 130/66 10/10/24 21:46 94 10/10/24 21:46 109 H 10/10/24 21:43 94 10/10/24 21:43 110 H 10/10/24 21:41 95 10/10/24 21:41 110 H 10/10/24 21:36 95 10/10/24 21:36 120 H 10/10/24 21:35 122 H 10/10/24 21:35 130/72 10/10/24 21:31 95 10/10/24 21:31 117 H 10/10/24 21:29 94 10/10/24 21:29 115 H 10/10/24 21:26 95 10/10/24 21:26 115 H 10/10/24 21:22 94 10/10/24 21:22 107 H 10/10/24 21:21 95 10/10/24 21:21 108 H 10/10/24 21:20 107 H 10/10/24 21:20 129/65 10/10/24 21:16 96 10/10/24 21:16 108 H 10/10/24 21:14 94 10/10/24 21:14 102 H 10/10/24 21:11 96 10/10/24 21:11 107 H 10/10/24 21:06 95 10/10/24 21:06 107 H 10/10/24 21:05 104 H 10/10/24 21:05 128/64 10/10/24 21:01 94 10/10/24 21:01 103 H 10/10/24 21:00 93 10/10/24 21:00 98 H 10/10/24 20:56 91 10/10/24 20:56 111 H 10/10/24 20:51 95 10/10/24 20:51 105 H 10/10/24 20:50 106 H 10/10/24 20:50 127/64 10/10/24 20:46 96 10/10/24 20:46 144 H 10/10/24 20:41 96 10/10/24 20:41 113 H 10/10/24 20:36 98 10/10/24 20:36 111 H 10/10/24 20:35 106 H 10/10/24 20:35 127/65 10/10/24 20:31 88 L 10/10/24 20:31 118 H 10/10/24 20:26 92 10/10/24 20:26 203 H 10/10/24 20:25 139/98 10/10/24 20:21 100 10/10/24 20:21 117 H 10/10/24 20:16 100 10/10/24 20:16 121 H 10/10/24 20:11 98 10/10/24 20:11 128 H 10/10/24 20:07 127 H 10/10/24 20:07 159/65 H 10/10/24 20:06 99 10/10/24 20:06 127 H 10/10/24 20:05 148 H 10/10/24 20:05 169/115 H 10/10/24 20:05 91 10/10/24 20:05 130 H 10/10/24 20:01 99 10/10/24 20:01 128 H 10/10/24 19:56 100 10/10/24 19:56 119 H 10/10/24 19:51 98 10/10/24 19:51 118 H 10/10/24 19:46 100 10/10/24 19:46 115 H 10/10/24 19:41 98 10/10/24 19:41 117 H 10/10/24 19:36 96 10/10/24 19:36 102 H 10/10/24 19:35 102 H 10/10/24 19:35 130/62 10/10/24 19:32 94 10/10/24 19:32 100 H 10/10/24 19:31 96 10/10/24 19:31 98 H 10/10/24 19:26 96 10/10/24 19:26 99 H 10/10/24 19:21 96 10/10/24 19:21 100 H 10/10/24 19:20 97 H 10/10/24 19:20 119/60 10/10/24 19:18 94 10/10/24 19:18 97 H 10/10/24 19:16 95 10/10/24 19:16 96 H 10/10/24 19:11 97 10/10/24 19:11 118 H 10/10/24 19:06 97 10/10/24 19:06 114 H 10/10/24 19:06 116 H 10/10/24 19:06 132/86 10/10/24 19:05 16 10/10/24 19:05 36.7 C 16 10/10/24 19:01 97 10/10/24 19:01 106 H 10/10/24 18:56 97 10/10/24 18:56 124 H 10/10/24 18:51 97 10/10/24 18:51 121 H 10/10/24 18:49 96 H 10/10/24 18:49 130/77 10/10/24 18:46 98 10/10/24 18:46 112 H 10/10/24 18:45 104 H 10/10/24 18:45 127/77 10/10/24 18:43 116 H 10/10/24 18:43 125/72 10/10/24 18:41 99 10/10/24 18:41 115 H 10/10/24 18:39 125 H 10/10/24 18:39 141/65 H 10/10/24 18:38 126 H 10/10/24 18:38 137/75 10/10/24 18:36 100 10/10/24 18:36 127 H 10/10/24 18:31 98 10/10/24 18:31 129 H 10/10/24 18:26 99 10/10/24 18:26 127 H 10/10/24 18:22 36.7 C 10/10/24 18:22 111 H 10/10/24 18:22 111/68 10/10/24 18:21 98 10/10/24 18:21 109 H 10/10/24 18:16 99 10/10/24 18:16 111 H 10/10/24 18:11 97 10/10/24 18:11 106 H 10/10/24 18:07 101 H 10/10/24 18:07 113/64 10/10/24 18:06 97 10/10/24 18:06 109 H 10/10/24 18:01 97 10/10/24 18:01 111 H O2 Del Method 10/11/24 03:30 Room Air 10/10/24 23:17 Room Air 10/10/24 22:06 10/10/24 22:06 10/10/24 22:05 10/10/24 22:05 10/10/24 22:01 10/10/24 22:01 10/10/24 21:59 10/10/24 21:59 10/10/24 21:56 10/10/24 21:56 10/10/24 21:51 10/10/24 21:51 10/10/24 21:50 10/10/24 21:50 10/10/24 21:46 10/10/24 21:46 10/10/24 21:43 10/10/24 21:43 10/10/24 21:41 10/10/24 21:41 10/10/24 21:36 10/10/24 21:36 10/10/24 21:35 10/10/24 21:35 10/10/24 21:31 10/10/24 21:31 10/10/24 21:29 10/10/24 21:29 10/10/24 21:26 10/10/24 21:26 10/10/24 21:22 10/10/24 21:22 10/10/24 21:21 10/10/24 21:21 10/10/24 21:20 10/10/24 21:20 10/10/24 21:16 10/10/24 21:16 10/10/24 21:14 10/10/24 21:14 10/10/24 21:11 10/10/24 21:11 10/10/24 21:06 10/10/24 21:06 10/10/24 21:05 10/10/24 21:05 10/10/24 21:01 10/10/24 21:01 10/10/24 21:00 10/10/24 21:00 10/10/24 20:56 10/10/24 20:56 10/10/24 20:51 10/10/24 20:51 10/10/24 20:50 10/10/24 20:50 10/10/24 20:46 10/10/24 20:46 10/10/24 20:41 10/10/24 20:41 10/10/24 20:36 10/10/24 20:36 10/10/24 20:35 10/10/24 20:35 10/10/24 20:31 10/10/24 20:31 10/10/24 20:26 10/10/24 20:26 10/10/24 20:25 10/10/24 20:21 10/10/24 20:21 10/10/24 20:16 10/10/24 20:16 10/10/24 20:11 10/10/24 20:11 10/10/24 20:07 10/10/24 20:07 10/10/24 20:06 10/10/24 20:06 10/10/24 20:05 10/10/24 20:05 10/10/24 20:05 10/10/24 20:05 10/10/24 20:01 10/10/24 20:01 10/10/24 19:56 10/10/24 19:56 10/10/24 19:51 10/10/24 19:51 10/10/24 19:46 10/10/24 19:46 10/10/24 19:41 10/10/24 19:41 10/10/24 19:36 10/10/24 19:36 10/10/24 19:35 10/10/24 19:35 10/10/24 19:32 10/10/24 19:32 10/10/24 19:31 10/10/24 19:31 10/10/24 19:26 10/10/24 19:26 10/10/24 19:21 10/10/24 19:21 10/10/24 19:20 10/10/24 19:20 10/10/24 19:18 10/10/24 19:18 10/10/24 19:16 10/10/24 19:16 10/10/24 19:11 10/10/24 19:11 10/10/24 19:06 10/10/24 19:06 10/10/24 19:06 10/10/24 19:06 10/10/24 19:05 10/10/24 19:05 10/10/24 19:01 10/10/24 19:01 10/10/24 18:56 10/10/24 18:56 10/10/24 18:51 10/10/24 18:51 10/10/24 18:49 10/10/24 18:49 10/10/24 18:46 10/10/24 18:46 10/10/24 18:45 10/10/24 18:45 10/10/24 18:43 10/10/24 18:43 10/10/24 18:41 10/10/24 18:41 10/10/24 18:39 10/10/24 18:39 10/10/24 18:38 10/10/24 18:38 10/10/24 18:36 10/10/24 18:36 10/10/24 18:31 10/10/24 18:31 10/10/24 18:26 10/10/24 18:26 10/10/24 18:22 10/10/24 18:22 10/10/24 18:22 10/10/24 18:21 10/10/24 18:21 10/10/24 18:16 10/10/24 18:16 10/10/24 18:11 10/10/24 18:11 10/10/24 18:07 10/10/24 18:07 10/10/24 18:06 10/10/24 18:06 10/10/24 18:01 10/10/24 18:01 Laboratory Results OB Labs: Blood Type O Positive 03/15/24 Antibody Screen NEGATIVE 03/15/24 Hgb 11.7 g/dl (12.0-16.0) L 07/18/24 Hct 35.1 % (37.0-47.0) L 07/18/24 MCV 90.5 fL (80.0-100.0) 03/15/24 Plt Count 327 K/uL (130-400) 03/15/24 Rubella IgG Antibody Immune (Immune) 03/15/24 RPR Nonreactive (Nonreactive) 05/27/22 Treponema pallidum Ab Negative (Negative) 07/18/24 Hep Bs Antigen Negative (Negative) 03/15/24 Hep Bs Antigen NON-REACTIVE (NON-REACTIVE) 05/27/22 Hepatitis C Antibody Negative (Negative) 03/15/24 Hepatitis C Ab (EIA) NON-REACTIVE (NON-REACTIVE) 05/27/22 HIV 1&2 Ab/P24 Ag 4thGn Negative (Negative) 03/15/24 HIV (1&2) Ag & Ab Conf NON-REACTIVE (NON-REACTIVE) 05/27/22 Glucose 1 Hr 50 gm 174 mg/dl (70-130) H 07/18/24 OB Optional Labs: Chlamydia trachomatis RNA Not Detected (NotDetected) 03/15/24 Neisseria gonorrhoeae RNA Not Detected (NotDetected) 03/15/24 Thyroid Stimulating Hormone (TSH) 0.713 uIu/ml (0.300-4.500) 08/15/24 Supervising Physician <Zoya Delgadillo MD, FACOG - Last Filed: 10/11/24 07:20> Co-Signing Physician Notes Resident Physician Supervision Note: I was present with Dr. Jeffries during the history and exam. I discussed the case with the resident and agree with the findings and plan as documented in the note. Any exceptions or clarifications are listed here: doing well, abd soft 2 down nt, ext nt calves. ppd #1 s/p doing well. routine care. breast/rhpos/ri. hgb noted. Documented By: Zoya Delgadillo MD, FACOG Resident Activity Tracking <Sandra Jeffries DO - Last Filed: 10/11/24 07:14> Resident Involvement: Resident Care Provided Care Provided: OB Delivery
[2024-10-11 06:37] LABS: Hematocrit (blood only) 33.0 % (37.0-47.0); Hemoglobin 10.9 g/dl (12.0-16.0)
[2024-10-11] MEDS: PRENATAL VITAMIN 1 TAB PO SCH (08:35)
[2024-10-11 19:13] VITALS: TEMP 97.7; O2SAT 98
--- NOTE | 2024-10-12 05:46 | Obstetrical Progress Note ---
Date of Service <Snadra Jeffries DO - Last Filed: 10/12/24 06:45> October 12, 2024 Assessment & Plan <Sandra Jeffries - Last Filed: 10/12/24 06:45> (1) care following vaginal delivery: Plan 28 yo post- day 2 s/p . Feels well today. Vital signs stable Continue post- care Encourage ambulation and Pain controlled with ibuprofen Hgb stable Discharge home today, follow up with Dr. Delgadillo in 6 weeks. <Juanita Alvarenga, DO - Last Filed: 10/12/24 06:46> (1) care following vaginal delivery: Subjective <Sandra Jeffries - Last Filed: 10/12/24 06:45> 28 yo post- day 2 s/p . Ambulation: ambulating normally Voiding: no voiding problems Passing Gas:: Yes Passing Stool:: Yes Diet Tolerance:: regular diet Lochia:: Small Feeding Type:: breast feeding Current Pain Level: 1/10 Resting comfortably this AM in NAD. Denies COHEN, CP, SOB, N/V/D, LE pain/swelling. Review of Systems All systems reviewed & are unremarkable except as noted in HPI & below Physical Exam <Sandra Jeffries Last Filed: 10/12/24 06:45> General: patient resting comfortably, NAD, non-toxic in appearance, AA&O x 4, answers questions appropriately. Skin: warm, dry, intact HEENT: NC/AT, anicteric sclera, conjunctiva without injection, moist mucus membranes. Heart: +S1/S2, regular, no m/r/g Lungs: equal air entry bilaterally, no rales/rhonchi/wheezes Abd: +BS, soft, NT/ND, uterine fundus 3 FBs below umbilicus Ext: warm, no clubbing/cyanosis or edema, Hoang's neg. Neuro: nonfocal, patient AA&O x 4, speech intact, no facial droop, moving all extremities on command. Results & Data <Sandra Jeffries DO - Last Filed: 10/12/24 06:45> Vital Signs (Past 12 Hours) Vital Signs Temp Pulse Resp BP Pulse Ox O2 Del Method 10/11/24 19:12 36.5 C 79 16 111/70 98 Room Air Laboratory Results OB Labs: Blood Type O Positive 03/15/24 Antibody Screen NEGATIVE 03/15/24 Hgb 11.7 g/dl (12.0-16.0) L 07/18/24 Hct 35.1 % (37.0-47.0) L 07/18/24 MCV 90.5 fL (80.0-100.0) 03/15/24 Plt Count 327 K/uL (130-400) 03/15/24 Rubella IgG Antibody Immune (Immune) 03/15/24 RPR Nonreactive (Nonreactive) 05/27/22 Treponema pallidum Ab Negative (Negative) 07/18/24 Hep Bs Antigen Negative (Negative) 03/15/24 Hep Bs Antigen NON-REACTIVE (NON-REACTIVE) 05/27/22 Hepatitis C Antibody Negative (Negative) 03/15/24 Hepatitis C Ab (EIA) NON-REACTIVE (NON-REACTIVE) 05/27/22 HIV 1&2 Ab/P24 Ag 4thGn Negative (Negative) 03/15/24 HIV (1&2) Ag & Ab Conf NON-REACTIVE (NON-REACTIVE) 05/27/22 Glucose 1 Hr 50 gm 174 mg/dl (70-130) H 07/18/24 OB Optional Labs: Chlamydia trachomatis RNA Not Detected (NotDetected) 03/15/24 Neisseria gonorrhoeae RNA Not Detected (NotDetected) 03/15/24 Thyroid Stimulating Hormone (TSH) 0.713 uIu/ml (0.300-4.500) 08/15/24 Supervising Physician <Juanita Alvarenga DO - Last Filed: 10/12/24 06:46> Co-Signing Physician Notes Resident Physician Supervision Note: I interviewed and examined the patient. Discussed with Dr. Jeffries and agree with findings and plan as documented in the note. Any exceptions or clarifications are listed here: PPD#2 doing well. DC home today. Documented By: Juanita Alvarenga DO Resident Activity Tracking <Sandra Jeffries DO - Last Filed: 10/12/24 06:45> Resident Involvement: Resident Care Provided Care Provided: OB Delivery
[2024-10-12 09:01] VITALS: BP 120/81; PULSE 74; RESP 18
== END 2024-10-12 10:55 | disposition home or self-care (01) | DRG 807 ==
LOC: 4S1 07:44 → 4E2 23:29